=== PATIENT | male | born 1960 | race Caucasian/White ===

== ENCOUNTER → 2018-03-05 10:32 | Outpatient (CLI) | payer OTHER, SELFPAY ==
--- NOTE | 2018-03-05 10:32 | DT_ITS ---
This patient was seen during an EMR downtime March 04, 2018 - March 11, 2018. This patient may have a combination of paper and electronic documentation or all paper documentation. All documentation is viewable within the e-chart portion of [facility] for each patient visit.
[2018-03-10 08:59] LABS: AST(SGOT) 24 U/L (15-37); Alanine Aminotransfer ALT/SGPT 21 U/L (16-61); Anion Gap 6 (5-15); BUN 16 mg/dL (7-18); BUN/Creat Ratio 11.7 RATIO (10-20); Calcium,Total 9.3 mg/dL (8.5-10.1); Chloride 105 mmol/L (98-107); Cholesterol 148 mg/dL (200); Creatinine, Serum 1.37 mg/dL (0.70-1.30); EST Glomerular Filtration Rate 57 mL/min (>60); Est Glom Filt Rate - Afr Amer 69 mL/min (>60); Glucose 94 mg/dL (74-106); Potassium 4.6 mmol/L (3.5-5.1); Sodium Level 140 mmol/L (136-145); Triglycerides 269 mg/dL; Very Low Density Lipoprotein 54 mg/dL (5-40)
[2018-03-10 09:00] LABS: High Density Lipoprotein 37 mg/dL; T4 Total, Thyroxin 12.5 ug/dL (4.5-12.1); Thyroid Stim Hormone (TSH) 0.84 uIU/mL (0.358-3.74)
== END ==
LOC: MTLAB 03-09 09:30 → MFPLAB 03-09 18:15
PROVIDERS: Family Provider Family Medicine; PCP Family Medicine; Visit Provider Family Medicine
DX: E78.5 Hyperlipidemia, unspecified (principal); E03.9 Hypothyroidism, unspecified; I10 Essential (primary) hypertension
CPT/HCPCS: 36415; 80048; 80061; 84436; 84443; 84450; 84460

== ENCOUNTER → 2019-05-13 10:56 | Outpatient (CLI) | payer OTHER, SELFPAY ==
[2019-05-13 12:49] LABS: AST(SGOT) 18 U/L (15-37); Alanine Aminotransfer ALT/SGPT 20 U/L (16-61); Anion Gap 5 (5-15); BUN 18 mg/dL (7-18); BUN/Creat Ratio 12.9 RATIO (10-20); Calcium,Total 8.9 mg/dL (8.5-10.1); Chloride 106 mmol/L (98-107); Cholesterol 160 mg/dL (200); Creatinine, Serum 1.39 mg/dL (0.70-1.30); EST Glomerular Filtration Rate 56 mL/min (>60); Est Glom Filt Rate - Afr Amer 68 mL/min (>60); Glucose 96 mg/dL (74-106); High Density Lipoprotein 36 mg/dL; Potassium 4.2 mmol/L (3.5-5.1); Sodium Level 139 mmol/L (136-145); T4 Total, Thyroxin 11.3 ug/dL (4.5-12.1); Thyroid Stim Hormone (TSH) 0.95 uIU/mL (0.358-3.74); Triglycerides 306 mg/dL; Very Low Density Lipoprotein 61 mg/dL (5-40)
== END ==
PROVIDERS: Family Provider Family Medicine; PCP Family Medicine; Referring Provider Family Medicine; Visit Provider Family Medicine
DX: I10 Essential (primary) hypertension (principal); E03.9 Hypothyroidism, unspecified; E78.5 Hyperlipidemia, unspecified
CPT/HCPCS: 36415; 80048; 80061; 84436; 84443; 84450; 84460

== ENCOUNTER → 2020-03-10 15:45 | Outpatient (CLI) | payer OTHER, SELFPAY ==
[2020-03-10 18:42] LABS: AST(SGOT) 17 U/L (15-37); Alanine Aminotransfer ALT/SGPT 21 U/L (16-61); Cholesterol 151 mg/dL (200); High Density Lipoprotein 37 mg/dL; PSA,Total - Annual Screen 0.28 ng/mL (0.00-4.00); Thyroid Stim Hormone (TSH) 0.83 uIU/mL (0.358-3.74); Triglycerides 265 mg/dL; Very Low Density Lipoprotein 53 mg/dL (5-40)
== END ==
PROVIDERS: PCP Family Medicine; Referring Provider Family Medicine; Visit Provider Family Medicine
DX: Z00.00 Encounter for general adult medical examination without abnormal findings (principal); E03.9 Hypothyroidism, unspecified; E78.5 Hyperlipidemia, unspecified
CPT/HCPCS: 36415; 80061; 84153; 84436; 84443; 84450; 84460; G0103

== ENCOUNTER → 2020-09-10 15:10 | Outpatient (CLI) | payer OTHER, SELFPAY | PROVIDERS: PCP Family Medicine; Referring Provider Otolaryngology; Visit Provider Otolaryngology | DX: J01.90 Acute sinusitis, unspecified (principal) | CPT/HCPCS: 87070; 87077; 87186; 87205 ==

== ENCOUNTER → 2020-10-08 08:15 | Outpatient (CLI) | payer OTHER, SELFPAY ==
--- NOTE | 2020-10-08 08:22 | CT_ITS ---
STUDY: CT MAXILLOFACIAL SINUSES REASON FOR EXAM: Male, 60 years old. CHRONIC SINUSITIS--ATB X4 ROUNDS RADIATION DOSAGE (If Supplied By Facility): CTDIvol = ( 33.06 ) mGy, DLP = ( 895.83 ) mGycm TECHNIQUE: The patient was scanned in a multi detector CT scanner. High resolution axial imaging was performed without the administration of intravenous contrast material. Sagittal and coronal images were reconstructed. Individualized dose optimization techniques were used for this CT. COMPARISON: None. FINDINGS: FRONTAL SINUSES: Partial opacification of the frontal sinuses more prominent on the right side. ETHMOIDAL SINUSES: Opacification of the ethmoid sinuses bilaterally worse on the right side with the resorption of the bony septations within the ethmoid sinus. MAXILLARY SINUSES: Opacification of the right maxillary sinus. Mucosal polyps or retention cysts in the left maxillary sinus. SPHENOIDAL SINUSES: There is opacification of the sphenoid sinuses. The ostiomeatal complexes are ablated bilaterally due to soft tissue density. Normal bilateral middle turbinates. Normal bilateral inferior turbinates. Normal midline nasal septum. Soft tissue density within the nasal fossa more prominent in the right side. The visualized osseous structures are normal. The visualized bilateral orbital contents are normal. CT/Sinus/Facial Bone IMPRESSION: Pansinusitis. Electronically Signed: Jassi Lovelace, at 8:50 EST , Service support ,
== END ==
PROVIDERS: PCP Family Medicine; Referring Provider Otolaryngology; Visit Provider Otolaryngology
DX: J33.9 Nasal polyp, unspecified (principal); J32.9 Chronic sinusitis, unspecified
CPT/HCPCS: 70486

== ENCOUNTER 2020-11-01 08:24 | Day surgery (SDC) | payer OTHER, SELFPAY ==
--- NOTE | 2020-10-26 12:15 | EKG12_ITS ---
Test Reason : PRE SUGERY Blood Pressure : / mmHG Vent. Rate : 067 BPM Atrial Rate : 067 BPM P-R Int : 144 ms QRS Dur : 092 ms QT Int : 374 ms P-R-T Axes : 061 025 052 degrees QTc Int : 395 ms Normal sinus rhythm Normal ECG Confirmed by MEREDITH LUJAN, CUCO ([id number]), managing editor GRETEL HUNT ([id number]) on 10/26/2020 2:59:14 PM Referred By: Rui Ferris Confirmed By:CUCO HARPER MD
[2020-10-26 13:33] LABS: Hematocrit 47.5 % (40-54); Hemoglobin 15.6 g/dL (13.0-16.5); Mean Corp Hgb Conc 32.8 g/dL (32-36); Mean Corpuscular Hgb 29.1 pg (27.0-32.0); Mean Corpuscular Volume 88.5 fL (80-94); Mean Platelet Vol. 9.8 fl (6.2-12.0); Platelet Count 237 K/mm3 (150-450); RBC Distribution Width SD 42.2 fl (35.1-43.9); Red Blood Count 5.37 M/mm3 (4.6-6.2); White Blood Count 7.2 K/mm3 (4.4-11.0)
[2020-10-26 14:09] LABS: Thyroid Stim Hormone (TSH) 0.66 uIU/mL (0.358-3.74)
[2020-11-01] VITALS (7 sets, daily range): BP systolic 124–170; BP diastolic 86–98; PULSE 61–84; RESP 16; TEMP 36.1–36.9; O2SAT 93–99; BMI 27.6
[2020-11-01] MEDS: Oxymetazoline 0.05% 1 SPRAY SPRAY.BTL NASAL (09:03)
[2020-11-01] MEDS: Lactated Ringers 1,000 ML 100 ML IV ×2 (09:05→11:16)
[2020-11-01] MEDS: Oxymetazoline 0.05% 1 SPRAY SPRAY.BTL 15 SPRAY (09:10)
--- NOTE | 2020-11-01 10:10 | ETH_PTH ---
PATIENT: DULCE MARIA TORO LOC: [facility] [place] U#:[id number] AGE/SX: 60/M ROOM: RE11/01/[address]: Dr. Rui Ferris MD : 1960 BED: DIS: 11/01/2020 SPEC #: [id number] RECD: 11/01/20 12:31 STATUS: TASHA YENIFER #: [id number] LEVY: 11/01/20 10:[address]: Rui Ferris DEPT: SURGICAL PATHOLOGY RECD BY: Feli Moss ENTERED: 11/01/20 13:35 SP TYPE: ETH TISS OTHR DR: Dr. Lala Waller MD Tissues: A - Ethmoid sinus, NOS B - Ethmoid sinus, NOS Procedures: Surgery Specimen Level III HEADER OPERATION: Total ethmoidectomy, maxillary antrostomy with tissue removal PRE-OP DIAGNOSIS: Chronic pansinusitis, nasal polyp TISSUE SUBMITTED: A - Contents of right ethmoid and maxillary sinus, B - Contents of left ethmoid and maxillary sinus MICROSCOPIC DIAGNOSIS A. Right ethmoid and maxillary sinus contents, excision: Chronic sinusitis with marked eosinophilic infiltrate. Minute fragments of bone with no pathologic change. B. Left ethmoid and maxillary sinus contents, excision: Chronic sinusitis with marked eosinophilic infiltrate. Minute fragments of bone with no pathologic change. AM:harish 11/03/2020 MICROSCOPIC DESCRIPTION Slides are reviewed. GROSS DESCRIPTION A - Received in fixative is one container labeled with the patient's name and designated contents of right ethmoid and maxillary sinuses. The specimen consists of multiple irregular fragments of light to dark sotelo soft tissue that in aggregate measure 5 x 5 x 2 cm. Lunchroom Mother portions are submitted in two cassettes. B - Received in fixative is one container labeled with the patient's name and designated contents of left ethmoid and maxillary sinuses. The specimen consists of multiple irregular fragments of light to dark sotelo soft tissue that in aggregate measure 7 x 5 x 2 cm. Lunchroom Mother portions are submitted in two cassettes. / AM:harish 11/02/20 TC:2 CPT: 55119 x2
[2020-11-01] MEDS: Lidocaine 2% /Epi 1:100 (50ml) 50 ML Vial (10:30)
--- NOTE | 2020-11-01 11:36 | OP.PCM_ITS ---
Report of Operation Date of Procedure: 11/01/20 Pre-Operative Diagnosis: chronic sinusitis Post-Operative Diagnosis: same Surgery/Procedure Performed:: Bilateral total ethmoidectomy. Bilateral sphenoidotomy. Bilateral maxillary antrostomy with tissue removal. Use of na vigation Type of Anesthesia:: General Anesthesiologist: Shahzad Pearson Estimated Blood Loss (mL): 50 cc Description of Procedure: The patient was taken to the operating room on 11/02/20. The patient was placed in the supine position on the operating table. The patient was given sufficient general endotracheal anesthesia. The head of bed was elevated 30 degrees. The navigation system was placed and verified per protocol and found to be accurate. 0 and 30 degrees rigid nasal endoscopes were used throughout the entire case. The middle turbinate uncinate process and polyps were injected with 1% lidocaine with epinephrine bilaterally. The right middle turbinate was medialized with a Shapleigh elevator. Polyp was removed from the middle meatus using a sinus shaver. A ball-tipped sinus seeker was placed into the patient's maxillary sinus. The antrostomy was created with a back biter. Tissue was removed from the maxillary sinus using a microdebrider with a 30 degree rigid nasal endoscope for visualization. Thick, sticky inspissated mucous was removed. Next, the ethmoid bulla was opened with a small curette. Anterior and posterior ethmoidectomy were then carried out using curette, sinus shaver and 45 degree Blakesley Jane forceps. Ethmoid cells were verified for relation to the skull base and orbit prior to being entered with the navigation system. The front face of the sphenoid was opened with a suction. Ryan-Cut forceps were then used to widen the opening. I then placed Afrin pledgets into the sinonasal cavity. Next attention was turned to the left side. The middle turbinate was medialized with a Shapleigh elevator. A large polyp was removed from the middle meatus and septum using a sinus shaver. The uncinate process was taken down using a sinus shaver. In doing so, the maxillary antrostomy was created. A back biter was also used. Tissue was removed from the maxillary sinus using a microdebrider with a 30 degree rigid nasal endoscope for visualization. The ethmoid bulla was opened with a small curette. Anterior posterior ethmoidectomy were then carried out using a sinus shaver curette and Blasusanneley Jane forceps. Ethmoid cells were verified for relation to the skull base and orbit prior to being entered with the navigation system. The sphenoid was then opened on the left side using a sinus shaver and confirmed with navigation. Hemostasis was then achieved using Afrin pledgets. The pledgets were then removed bilaterally and Delaney powder was applied bilaterally for absolute hemostasis. The procedure was then terminated. The patient was then awoken and brought to the recovery room in stable condition blood loss less than 50 cc replacement none. Sponge, needle, instrument count were correct at the end of the procedure.
--- NOTE | 2020-11-01 11:36 | DCINST_ITS ---
You will use the following diet at home:: Regular Discharge Activity: Return to Normal Activity, - - NO NOSEBLOWING Additional Activity Instructions:: Start saline irrigation 4x/day on 11/02/20 Allergies/Adverse Reactions: Allergies No Known Allergies Allergy (Verified 11/01/20 08:41) Medications to take at Discharge Levothyroxine [Synthroid] 75 mcg PO DAILY 05/29/14 Pantoprazole Sodium [Protonix] 40 mg PO QHS 05/29/14 Simvastatin [Zocor] 40 mg PO QHS 05/29/14 Alprazolam 0.25 mg PO TID PRN 10/25/20 Doxycycline Hyclate 50 mg PO DAILY 10/25/20 Triamcinolone Acetonide [Nasacort] 1 spray NS DAILY 10/25/20 Losartan Potassium 50 mg PO DAILY 11/01/20 Orders to be completed after discharge: 12 Lead EKG [[facility]] Time Frame: 10/26/20, Location: None Selected Primary Care Physician: Lala Waller MD [Primary Care Provider] - Test Results: Test results from this visit will be discussed in further detail at your follow- up appointment, if applicable.
== END 2020-11-01 15:08 | disposition home or self-care (01) ==
LOC: SDC 08:25 → AC 08:26
PROVIDERS: Anesthesiology; PCP Family Medicine; Referring Provider Otolaryngology; Visit Provider Otolaryngology
PROC: (CPT 31255; principal; 2020-11-01 09:40)
DX: J32.4 Chronic pansinusitis (principal); J33.0 Polyp of nasal cavity
CPT/HCPCS: 00160; 31255; 31259; 31267; 36415; 84443; 85027; 87426; 88304; 88305; 93005; C9803; J7120; J2405

== ENCOUNTER 2020-12-16 10:51 | Outpatient (RCR) | payer OTHER, SELFPAY ==
[2020-11-01 08:47] VITALS: BMI 27.6
[2020-12-16] MEDS: COVID-19 VACC, MRNA(PFIZER)/PF 30 MCG/0.3 ML SYRINGE IM (08:17)
[2021-01-06] MEDS: COVID-19 VACC, MRNA(PFIZER)/PF 30 MCG/0.3 ML SYRINGE IM (08:07)
== END 2020-12-16 23:59 ==
LOC: IMMUN 10:51
PROVIDERS: PCP Family Medicine; Visit Provider Family Medicine
DX: Z23 Encounter for immunization (principal)
CPT/HCPCS: 0001A; 0002A; 91300

== ENCOUNTER → 2021-04-22 15:34 | Outpatient (CLI) | payer OTHER, SELFPAY ==
[2020-11-01 08:47] VITALS: BMI 27.6
[2021-04-22 17:48] LABS: AST(SGOT) 45 U/L (15-37); Alanine Aminotransfer ALT/SGPT 37 U/L (16-61); Cholesterol 160 mg/dL (200); High Density Lipoprotein 42 mg/dL; PSA,Total - Annual Screen 0.28 ng/mL (0.00-4.00); T4 Total, Thyroxin 12.1 ug/dL (4.5-12.1); Thyroid Stim Hormone (TSH) 1.28 uIU/mL (0.358-3.74); Triglycerides 165 mg/dL; Very Low Density Lipoprotein 33 mg/dL (5-40)
== END ==
PROVIDERS: PCP Family Medicine; Referring Provider Family Medicine; Visit Provider Family Medicine
DX: E78.5 Hyperlipidemia, unspecified (principal); E03.9 Hypothyroidism, unspecified; Z12.5 Encounter for screening for malignant neoplasm of prostate
CPT/HCPCS: 36415; 80061; 84153; 84436; 84443; 84450; 84460; G0103

== ENCOUNTER → 2021-05-03 15:30 | Outpatient (CLI) | payer OTHER, SELFPAY ==
[2020-11-01 08:47] VITALS: BMI 27.6
== END ==
PROVIDERS: PCP Family Medicine; Referring Provider Otolaryngology Otolaryngology/Facial Plastic Surgery; Visit Provider Otolaryngology Otolaryngology/Facial Plastic Surgery
DX: J32.9 Chronic sinusitis, unspecified (principal)
CPT/HCPCS: 87070; 87077; 87186; 87205

== ENCOUNTER 2021-12-02 14:04 | Outpatient (CLI) | payer BC, SELFPAY ==
[2021-12-02 17:52] LABS: Vitamin D,25 Hydroxy 20.1 ng/mL
== END 2021-12-02 23:59 | disposition home or self-care (01) ==
LOC: MFPLAB 14:12
PROVIDERS: PCP Family Medicine; Referring Provider Family Medicine; Visit Provider Family Medicine
DX: Z13.21 Encounter for screening for nutritional disorder (principal)
CPT/HCPCS: 36415; 82306

== ENCOUNTER → 2022-04-24 | Outpatient (CLI) | payer BC, SELFPAY ==
[2022-04-24 18:32] LABS: AST(SGOT) 23 U/L (15-37); Alanine Aminotransfer ALT/SGPT 21 U/L (16-61); Cholesterol 147 mg/dL (200); High Density Lipoprotein 37 mg/dL; PSA,Total - Annual Screen 0.29 ng/mL (0.00-4.00); Thyroid Stim Hormone (TSH) 0.76 uIU/mL (0.358-3.74); Triglycerides 292 mg/dL; Very Low Density Lipoprotein 58 mg/dL (5-40)
== END | disposition home or self-care (01) ==
LOC: MFPLAB 14:41
PROVIDERS: PCP Family Medicine; Referring Provider Family Medicine; Visit Provider Family Medicine
DX: E03.9 Hypothyroidism, unspecified (principal); Z12.5 Encounter for screening for malignant neoplasm of prostate; E78.5 Hyperlipidemia, unspecified
CPT/HCPCS: 36415; 80061; 84153; 84436; 84443; 84450; 84460; G0103

== ENCOUNTER → 2023-01-23 | Outpatient (CLI) | payer OTHER, SELFPAY | END | disposition home or self-care (01) | LOC: LABSPEC 15:53 | PROVIDERS: PCP Family Medicine; Referring Provider Otolaryngology; Visit Provider Otolaryngology | DX: J01.90 Acute sinusitis, unspecified (principal) | CPT/HCPCS: 87070; 87205 ==

== ENCOUNTER → 2023-03-13 | Outpatient (CLI) | payer OTHER, SELFPAY ==
--- NOTE | 2023-03-13 10:02 | STEWCON_ITS ---
Reason For Study: Chest Pain Stress Results Protocol: Rakan Protocol WITH DEFINITY Maximum Predicted HR: 159 bpm Target HR: 135 bpm % Maximum Predicted HR: 89 % DurationHeart Rate Stage (mm:ss) (bpm) BP Comment Baseline 61 122/88No Chest Pain; 3 ML Diluted Definity Rakan Protocol Stage I 3:00 83 150/82No Chest Pain Rakan Protocol Stage II 3:00 100 164/70No Chest Pain Rakan Protocol Stage III 3:00 129 170/72No Chest Pain Rakan Protocol Stage IV 2:00 142 / No Chest Pain Recovery 83 124/88No Chest Pain Stress Duration: 11:00 mm:ss Maximum Stress HR: 142 bpm METS: 13 Baseline Echocardiogram Findings The estimated ejection fraction is 60 %. Post-stress EF is 70%. Normal LV size. Stress Echo Wall motion Data Resting WM Intermediate WM Stress WM Resting Wall Motion Wall Motion Stress No regional wall motion No regional wall motion abnormalities noted. abnormalities noted. EKG Data Normal sinus rhythm. No significant ischemic changes. Symptoms with Stress The patient experinced No chest pain . ECHO/Stress Test Echo W/Contrast Interpretation Summary The estimated ejection fraction is 60 %. Exercise stress echo is negative for exercise-induced chest pain or EKG changes or echocardiographic changes of ischemia. Functional capacity is excellent for age Ordering Physician: Marlin Coreas Referring Physician: Marlin Coreas Performed By: Luis Young RCS
== END | disposition home or self-care (01) ==
PROVIDERS: PCP Family Medicine; Referring Provider Nurse Practitioner Family; Visit Provider Nurse Practitioner Family
DX: R07.89 Other chest pain (principal); F41.9 Anxiety disorder, unspecified
CPT/HCPCS: 93017; 93350; Q9957; A4216; C8928

== ENCOUNTER → 2023-04-20 | Outpatient (CLI) | payer OTHER, SELFPAY ==
--- NOTE | 2023-04-20 15:28 | US_ITS ---
INDICATION: right scrotal swelling COMPARISON: None. FINDINGS: 100 grayscale ultrasound images of the scrotal contents. Flow is documented to bilateral testicles by color Doppler as well as Doppler waveform. Significant cystic change of the right mediastinum testes, most consistent with tubular ectasia, with large dominant 1.3 cm testicular parenchymal cyst on the right. Associated significant diffuse cystic ectatic changes of the epididymis as well with dominant locule measuring up to 3.5 cm. These demonstrate no significant vascular flow by color Doppler. No definite distinct soft tissue component is associated with these cystic changes of the testicle or epididymis. Left testicle is unremarkable. Small left hydrocele. No definite abnormality of the left epididymis. Bilateral varicoceles. 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 No definite distinct soft tissue component associated with these cystic changes of the testicle or epididymis or significant vascular flow of these cysts by color Doppler. Electronically Signed: Toni Shen MD at 23:46 EDT ,
== END | disposition home or self-care (01) ==
PROVIDERS: PCP Family Medicine; Referring Provider Family Medicine; Visit Provider Family Medicine
DX: N50.89 Other specified disorders of the male genital organs (principal)
CPT/HCPCS: 76870; 93976

== ENCOUNTER → 2023-05-18 | Outpatient (CLI) | payer OTHER, SELFPAY ==
[2023-05-18 15:00] LABS: Hematocrit 48.1 % (40-54); Hemoglobin 15.6 g/dL (13.0-16.5); Mean Corp Hgb Conc 32.4 g/dL (32-36); Mean Corpuscular Hgb 29.9 pg (27.0-32.0); Mean Corpuscular Volume 92.1 fL (80-94); Mean Platelet Vol. 9.5 fl (6.2-12.0); Platelet Count 233 K/mm3 (150-450); RBC Distribution Width CV 12.7 % (11.6-14.6); RBC Distribution Width SD 42.7 fl (35.1-43.9); Red Blood Count 5.22 M/mm3 (4.6-6.2); White Blood Count 8.6 K/mm3 (4.4-11.0)
[2023-05-18 15:22] LABS: Anion Gap 3 (5-15); BUN 20 mg/dL (7-18); BUN/Creat Ratio 16.5 RATIO (10-20); Calcium,Total 9.2 mg/dL (8.5-10.1); Chloride 105 mmol/L (98-107); Creatinine, Serum 1.21 mg/dL (0.70-1.30); EST Glomerular Filtration Rate 65 mL/min (>60); Est Glom Filt Rate - Afr Amer 78 mL/min (>60); Glucose 87 mg/dL (74-106); Potassium 4.3 mmol/L (3.5-5.1); Sodium Level 139 mmol/L (136-145)
== END | disposition home or self-care (01) ==
LOC: PSN 14:03
PROVIDERS: PCP Family Medicine; Referring Provider Urology; Visit Provider Urology
DX: Z01.812 Encounter for preprocedural laboratory examination (principal); Z01.810 Encounter for preprocedural cardiovascular examination
CPT/HCPCS: 36415; 80048; 85027

== ENCOUNTER → 2023-10-16 | Outpatient (CLI) | payer OTHER, SELFPAY ==
[2023-10-16 11:00] LABS: PSA,Total - Annual Screen 0.38 ng/mL (0.00-4.00)
== END | disposition home or self-care (01) ==
PROVIDERS: PCP Family Medicine; Referring Provider Nurse Practitioner; Visit Provider Nurse Practitioner
DX: Z12.5 Encounter for screening for malignant neoplasm of prostate (principal)
CPT/HCPCS: 36415; 84153; G0103

== ENCOUNTER → 2024-04-29 | Outpatient (CLI) | payer OTHER, SELFPAY ==
[2024-04-29 18:47] LABS: AST(SGOT) 24 U/L (15-37); Alanine Aminotransfer ALT/SGPT 23 U/L (16-61); Cholesterol 161 mg/dL (200); High Density Lipoprotein 45 mg/dL; Triglycerides 309 mg/dL; Very Low Density Lipoprotein 62 mg/dL (5-40)
== END | disposition home or self-care (01) ==
LOC: MFPLAB 16:42
PROVIDERS: PCP Family Medicine; Visit Provider Family Medicine
DX: E78.5 Hyperlipidemia, unspecified (principal)
CPT/HCPCS: 36415; 80061; 84450; 84460

== ENCOUNTER → 2024-10-28 | Outpatient (CLI) | payer OTHER, SELFPAY ==
[2024-10-28 12:18] LABS: PSA,Total - Annual Screen 0.42 ng/mL (0.00-4.00)
== END | disposition home or self-care (01) ==
LOC: MFPLAB 09:55
PROVIDERS: PCP Family Medicine; Referring Provider Family Medicine; Visit Provider Family Medicine
DX: Z12.5 Encounter for screening for malignant neoplasm of prostate (principal)
CPT/HCPCS: 36415; 84153; G0103

== ENCOUNTER → 2025-05-01 | Outpatient (CLI) | payer BC, SELFPAY ==
[2025-05-01 12:29] LABS: Hematocrit 44.0 % (40-54); Hemoglobin 14.8 g/dL (13.0-16.5); Immature Granulocytes Count 0.020 X10^3/uL (0.0-0.0); Mean Corp Hgb Conc 33.6 g/dL (32-36); Mean Corpuscular Volume 88.2 fL (80-94); Mean Platelet Vol. 9.2 fl (6.2-12.0); NRBC Flagged by Analyzer 0 % (0-5); Platelet Count 254 K/mm3 (150-450); RBC Distribution Width CV 13.0 % (11.6-14.6); RBC Distribution Width SD 41.5 fl (35.1-43.9); Red Blood Count 4.99 M/mm3 (4.6-6.2); White Blood Count 6.1 K/mm3 (4.4-11.0)
[2025-05-01 12:54] LABS: AST(SGOT) 23 U/L (<=37); Alanine Aminotransfer ALT/SGPT 13 U/L (<=46); Albumin, Serum 4.3 g/dL (3.4-4.8); Alkaline Phosphatase 134 U/L (40-129); Anion Gap 11 (5-15); BUN 15 mg/dL (4-19); BUN/Creat Ratio 13.4 RATIO (10-20); Calcium,Total 9.7 mg/dL (7.6-11.0); Carbon Dioxide 25.9 mmol/L (21.0-32.0); Chloride 102 mmol/L (98-108); Cholesterol 184 mg/dL (<=200); Globulin 3.5 g/dL (2.2-4.2); Glucose 116 mg/dL (70-99); Low Density Lipoprotein Calc. 87 mg/dL; Potassium 4.2 mmol/L (3.3-5.1); Triglycerides 273 mg/dL; Very Low Density Lipoprotein 55 mg/dL (5-40); cholesterol:hdl ratio screen 4.29
== END | disposition home or self-care (01) ==
LOC: MFPLAB 09:48
PROVIDERS: PCP Family Medicine; Visit Provider Family Medicine
DX: E78.5 Hyperlipidemia, unspecified (principal); E03.9 Hypothyroidism, unspecified; I10 Essential (primary) hypertension
CPT/HCPCS: 36415; 80053; 80061; 84443; 85025